=== PATIENT | female | born 1960 | race Native Hawaiian/Other Pacific Islander ===

== ENCOUNTER 2017-01-15 02:04 | Emergency (ER) | payer OTHER ==
[~2017-01-15] VITALS: Ht 152.4 cm; Wt 59.9 kg
[2017-01-15 03:12] LABS: PLATELET COUNT 350 K/uL (152-353)
[2017-01-15 03:17] LABS: POTASSIUM 3.4 mmol/L (3.6-5.2); SODIUM 138 mmol/L (136-145)
[2017-01-15 04:36] VITALS: BP 168/88; TEMP 98.8
== END 2017-01-15 04:35 | disposition home or self-care (01) ==
LOC: ED 02:04
DX: I10 Essential (primary) hypertension (principal); K52.9 Noninfective gastroenteritis and colitis, unspecified
CPT/HCPCS: 80053; 82150; 83690; 85027; 96374; 99284; J2405

== ENCOUNTER 2017-01-18 10:15 | Emergency (ER) | payer OTHER ==
[~2017-01-18] VITALS: Ht 152.4 cm; Wt 61.7 kg
[2017-01-18 10:13] VITALS: TEMP 98.2
[2017-01-18 11:06] LABS: PLATELET COUNT 261 K/uL (152-353)
[2017-01-18 11:15] LABS: POTASSIUM 3.5 mmol/L (3.6-5.2); SODIUM 140 mmol/L (136-145)
[2017-01-18 12:02] VITALS: BP 147/64
== END 2017-01-18 12:00 | disposition home or self-care (01) ==
LOC: ED 10:15
DX: R07.89 Other chest pain (principal); I10 Essential (primary) hypertension; R00.1 Bradycardia, unspecified
CPT/HCPCS: 36415; 80053; 82550; 84484; 85027; 86318; 93005; 99283

== ENCOUNTER 2017-04-05 11:07 | Day surgery (SDC) | payer OTHER ==
[2017-04-05 11:50] LABS: PLATELET COUNT 291 K/uL (152-353)
[2017-04-05 12:00] LABS: POTASSIUM 4.5 mmol/L (3.6-5.2); SODIUM 136 mmol/L (136-145)
== END 2017-04-05 16:02 | disposition home or self-care (01) ==
LOC: OR 11:07
PROVIDERS: Internal Medicine Gastroenterology
PROC: 0DB68ZZ Excision of Stomach, Via Natural or Artificial Opening Endoscopic (ICD-10-PCS; principal; 2017-04-05)
PROC: 0DB88ZZ Excision of Small Intestine, Via Natural or Artificial Opening Endoscopic (ICD-10-PCS; 2017-04-05)
PROC: 0D758ZZ Dilation of Esophagus, Via Natural or Artificial Opening Endoscopic (ICD-10-PCS; 2017-04-05)
DX: K29.60 Other gastritis without bleeding (principal); K22.4 Dyskinesia of esophagus; K22.2 Esophageal obstruction; R13.19 Other dysphagia; R10.13 Epigastric pain; K21.0 Gastro-esophageal reflux disease with esophagitis; B19.20 Unspecified viral hepatitis C without hepatic coma; R11.2 Nausea with vomiting, unspecified
CPT/HCPCS: 36415; 80053; 85027; J2001; J2250; J2704; J3010

== ENCOUNTER 2017-05-03 11:39 | Day surgery (SDC) | payer OTHER ==
[2017-05-03 12:49] LABS: PLATELET COUNT 310 K/uL (152-353)
[2017-05-03 12:59] LABS: POTASSIUM 4.1 mmol/L (3.6-5.2); SODIUM 135 mmol/L (136-145)
== END 2017-05-03 16:00 | disposition home or self-care (01) ==
LOC: OR 11:39
PROVIDERS: Internal Medicine Gastroenterology
PROC: 0DJD8ZZ Inspection of Lower Intestinal Tract, Via Natural or Artificial Opening Endoscopic (ICD-10-PCS; principal; 2017-05-03)
DX: K64.8 Other hemorrhoids (principal); K92.2 Gastrointestinal hemorrhage, unspecified; Z12.11 Encounter for screening for malignant neoplasm of colon; D64.9 Anemia, unspecified; K59.00 Constipation, unspecified; R11.2 Nausea with vomiting, unspecified
CPT/HCPCS: 80053; 85027; J0461; J2001; J2250; J2704; J3010

== ENCOUNTER 2017-10-24 00:55 | Emergency (ER) | payer OTHER ==
[~2017-10-24] VITALS: Ht 152.4 cm; Wt 68.0 kg
[2017-10-24] MEDS ORDERED: ZANTAC300 MG PO (01:16)
[2017-10-24] MEDS ORDERED: CLONIDINE HCL0.1 MG PO (01:16)
[2017-10-24] MEDS ORDERED: NEXIUM40 M1 PO (01:16)
[2017-10-24 01:45] LABS: PLATELET COUNT 309 K/uL (152-353)
[2017-10-24 02:15] LABS: POTASSIUM 4.3 mmol/L (3.6-5.2)
[2017-10-24 05:37] VITALS: BP 190/70; TEMP 98.8
== END 2017-10-24 05:39 | disposition home or self-care (01) ==
LOC: ED 00:55
DX: K29.70 Gastritis, unspecified, without bleeding (principal)
CPT/HCPCS: 36415; 80053; 81000; 82150; 83690; 83735; 85027; 96360; 96361; 96372; 96374; 96375; 99284; J1885; J2405; J2550

== ENCOUNTER 2018-03-14 08:10 | Outpatient (CLI) | payer OTHER ==
[~2018-03-14 08:10] MED LIST: CLONIDINE HCL0.1 MG PO; NEXIUM40 M1 PO; ZANTAC300 MG PO
== END 2018-03-14 18:49 | disposition home or self-care (01) ==
LOC: RAD 08:10
DX: Z02.71 Encounter for disability determination (principal)

== ENCOUNTER 2018-07-20 15:29 | Emergency (ER) | payer OTHER ==
[~2018-07-20] VITALS: Ht 154.9 cm; Wt 74.8 kg
[2018-07-20 15:35] VITALS: TEMP 98.8
[2018-07-20 17:38] VITALS: BP 170/78
== END 2018-07-20 17:37 | disposition home or self-care (01) ==
LOC: ED 15:29
DX: J11.1 Influenza due to unidentified influenza virus with other respiratory manifestations (principal)
CPT/HCPCS: 87502; 99283

== ENCOUNTER 2019-05-17 10:53 | Outpatient (CLI) | payer OTHER ==
[2019-05-17] MEDS ORDERED: RANI150T78 PO (17:40)
[2019-05-17] MEDS ORDERED: TRAZODONE HYDR150 MG PO (17:41)
[2019-05-17] MEDS ORDERED: BUSPIRONE15 MG PO (17:42)
[2019-05-17] MEDS ORDERED: CLONIDINE HYDR0.1 M2 PO (17:42)
[2019-05-17] MEDS ORDERED: CLON0.1T16 PO (17:43)
[2019-05-17] MEDS ORDERED: OMEP40CA PO (17:44)
[2019-05-17] MEDS ORDERED: GRALISE600 MG PO (17:44)
[2019-05-17] MEDS ORDERED: ALBU90AE13 INH (17:45)
[2019-05-17] MEDS ORDERED: CITALOPRAM40 MG PO (17:46)
== END 2019-05-17 11:07 | disposition short-term general hospital (02) ==
LOC: AMB 10:53
DX: R40.4 Transient alteration of awareness (principal)
CPT/HCPCS: A0425; A0427

== ENCOUNTER 2019-05-17 11:09 | Observation (INO) | payer OTHER ==
[2019-05-17] VITALS (9 sets, daily range): BP systolic 94–151; BP diastolic 61–99; TEMP 97.5–101.1; Ht 154.9 cm; Wt 69.6 kg
[~2019-05-17] VITALS: Ht 154.9 cm; Wt 69.6 kg
[2019-05-17 12:08] LABS: PLATELET COUNT 304 K/uL (152-353)
[2019-05-17 12:11] LABS: POTASSIUM 2.8 mmol/L (3.6-5.2)
[2019-05-17] MEDS ORDERED: RANI150T78 PO (17:40)
[2019-05-17] MEDS ORDERED: TRAZODONE HYDR150 MG PO (17:41)
[2019-05-17] MEDS ORDERED: BUSPIRONE15 MG PO (17:42)
[2019-05-17] MEDS ORDERED: CLONIDINE HYDR0.1 M2 PO (17:42)
[2019-05-17] MEDS ORDERED: CLON0.1T16 PO (17:43)
[2019-05-17] MEDS ORDERED: GRALISE600 MG PO (17:44)
[2019-05-17] MEDS ORDERED: OMEP40CA PO (17:44)
[2019-05-17] MEDS ORDERED: ALBU90AE13 INH (17:45)
[2019-05-17] MEDS ORDERED: CITALOPRAM40 MG PO (17:46)
[2019-05-18] VITALS: BP 125/74; TEMP 99.8
[2019-05-18 04:00] VITALS: BP 125/72; TEMP 98
[2019-05-18 05:59] LABS: PLATELET COUNT 309 K/uL (152-353)
[2019-05-18 06:12] LABS: POTASSIUM 4.1 mmol/L (3.6-5.2)
[2019-05-18 08:00] VITALS: BP 137/76; TEMP 97.4
== END 2019-05-18 09:30 | disposition home or self-care (01) ==
LOC: ED 11:09 → MED/SURG 15:20
PROVIDERS: Family Medicine; ADMIT Family Medicine
DX: N10 Acute pyelonephritis (principal); R55 Syncope and collapse; B96.20 Unspecified Escherichia coli [E. coli] as the cause of diseases classified elsewhere; E87.6 Hypokalemia; I10 Essential (primary) hypertension; D50.8 Other iron deficiency anemias; F19.10 Other psychoactive substance abuse, uncomplicated; J44.9 Chronic obstructive pulmonary disease, unspecified; K21.9 Gastro-esophageal reflux disease without esophagitis; F31.89 Other bipolar disorder; F32.89 Other specified depressive episodes; D72.828 Other elevated white blood cell count; B19.20 Unspecified viral hepatitis C without hepatic coma
CPT/HCPCS: 36415; 80053; 80307; 80329; 81000; 82550; 83605; 84484; 85027; 87040; 87077; 87086; 87088; 87186; 93005; 96365; 96366; 96375; 99220; 99284; G0378; J0696; J2930; J3490